=== PATIENT | female | born 1965 | race Caucasian/White ===

== ENCOUNTER 2022-08-28 08:25 | Outpatient (CLI) | payer OTHER, SELFPAY ==
[2022-08-28 09:52] LABS: Anion Gap 5 mmol/L (8-16); Blood Urea Nitrogen 18 mg/dL (7-17); Calcium 9.5 mg/dL (8.4-10.2); Carbon Dioxide 34 mmol/L (22-30); Chloride 100 mmol/L (98-107); Estimated Glomerular Filt Rate > 60; Glucose 119 mg/dL (65-110); Potassium 4.1 mmol/L (3.4-5.0); Sodium 139 mmol/L (137-145)
[2022-08-28 09:58] LABS: INR 0.9; Prothrombin Time 12.7 Seconds (11.1-14.7)
[2022-08-28 09:59] LABS: Partial Thromboplastin Time 29.3 SECONDS (22.3-36.8)
== END 2022-08-28 08:26 | disposition home or self-care (01) ==
PROVIDERS: Anesthesiology; PCP Internal Medicine; Visit Provider Urology
DX: Z01.812 Encounter for preprocedural laboratory examination (principal); N20.0 Calculus of kidney; E11.9 Type 2 diabetes mellitus without complications
CPT/HCPCS: 36415; 80048; 85610; 85730; 87086; 87088; 87147

== ENCOUNTER 2022-09-05 02:26 | Day surgery (SDC) | payer OTHER, SELFPAY ==
[2022-08-26 15:29] VITALS: BMI 37.7
--- NOTE | 2022-08-26 15:34 | PC.NURSE ---
Report to the Outpatient Waiting Room, entrance under the green pavilion located off [facility], at time 8:30 on date 09/05/22. Planned Procedure Time: 10:30. Time changes happen often and if your time is changed the preop area will call you the afternoon before. - You and your visitor will be asked to self-screen and do not enter if you have any COVID symptoms. - A mask is optional within the hospital at this time. Patients may have clear liquids (water, carbonated beverages, clear teas, apple juice) until 3 hours prior to surgery with a maximum of 20 ounces. - No food from midnight until time of surgery Take the following medications with a SIP of water the morning of surgery: CARVEDILOL DO NOT STOP ANY OF YOUR OTHER PRESCRIPTION MEDICATIONS PRIOR TO SURGERY EXCEPT THE FOLLOWING Medications to discontinue per physician: VITAMINS/SUPPLEMENTS Date to take last dose: 09/01/[address] LEE REGARDING ASPIRIN Please no make-up, nail tamazight, hairspray, perfume, deodorant, or body powder the day of surgery. No jewelry (including any body piercings) or valuables the day of surgery, leave them at home. Please take a shower or bath the night before, or the morning of, surgery with an antibacterial soap. Wear comfortable, loose fitting clothing. - Jewelry must be removed prior to entering the operating room. Rings and piercings that are not removed may be cut off. - The hospital will not accept responsibility for valuables. - Please leave all valuables, including medications, at home the day of surgery. If you are going home after surgery, a licensed driver license examiner must drive you home. - NO public transportation without another adult if you receive anesthesia. - We recommend that an adult stay with you for 24 hours following discharge. - We also recommend that you do not drive, make important decision, drink alcoholic beverages, or take any drugs that were not prescribed by your health care provider for at least 24 hours after your discharge time. Follow any additional instructions given to you from your surgeon. If you or anyone in your household have experienced Covid symptoms in the past week, please notify your surgeon or the nurse liaison at the phone number below for possible testing. Telephone instructions given to PT - TYRONE GARCÍA and asked if any additional questions and then verbalized understanding. Patient advised to call surgeon office or pre surgery nurse liaison [phone] if any additional questions.
--- NOTE | 2022-08-28 07:31 | P.HP_ITS ---
History of Present Illness History of Present Illness Consent: Risks, benefits, and alternatives have been discussed and questions answered. Patient agrees to proceed with procedure. Chief complaint: left renal stones 17mm Narrative: Yamilka Gardienr is a 57 year old female who has had several ureteral stones passed spontaneously in the past. She is now having persistent right flank pain and imaging an outside facility shows a 6 mm obstructing right mid ureteral stone at L4-L5. After discussion of options she has elected to proceed with right ESWL. She is aware the risk including, but not limited to, adverse cardiopulmonary events, perinephric hematoma, hematuria, need for additional procedures, Review of Systems Review of Systems: All systems reviewed & are unremarkable except as noted in HPI and below PMFSH Social History Social History Smoking status: Never smoker Alcohol intake: current Alcohol use details: 2/YEAR Substance use: never Substance use type: does not use Living arrangements: with family Spiritual care concerns: No Meds Home Medications and Allergies Home Medications Medication Instructions Recorded Confirmed Type aspirin 81 mg chewable tablet 81 mg PO HS 08/26/22 08/26/22 History carvedilol 25 mg tablet 25 mg PO BID 08/26/22 08/26/22 History ergocalciferol (vitamin D2) 1,250 1,250 mcg PO MONTHLY 08/26/22 08/26/22 History mcg (50,000 unit) capsule (Vitamin D2) fenofibrate micronized 134 mg 134 mg PO HS 08/26/22 08/26/22 History capsule losartan 100 1 tablet PO DAILY 08/26/22 08/26/22 History mg-hydrochlorothiazide 25 mg tablet metformin 500 mg tablet 1,000 mg PO BID 08/26/22 08/26/22 History multivitamin 1 tablet PO DAILY 08/26/22 08/26/22 History simvastatin 40 mg tablet 40 mg PO HS 08/26/22 08/26/22 History tamsulosin 0.4 mg capsule (Flomax) 0.4 mg PO HS 08/26/22 08/26/22 History vitamin B complex (B 1 tablet PO DAILY 08/26/22 08/26/22 History Complex-Vitamin B12 tablet) Allergies Allergy/AdvReac Type Severity Reaction Status Date / Time Penicillins Allergy Hives Verified 08/26/22 15:25 Exam Const: General: no acute distress Resp: Effort & Inspection: normal respiratory effort GI: Inspection: non-distended GI Palp: No abdominal tenderness and No Guarding due to palpation present (GI) Auscultation: normal bowel sounds Assessment and Plan Assessment and plan (1) Right ureteral stone: Code(s): N20.1 - Calculus of ureter Status: Acute Assessment and Plan: * Right ESWL
--- NOTE | 2022-09-04 14:18 | P.PNAN_ITS ---
Anes - Initial Pre Proc Eval Procedure: Operation Date: 09/05/22 10:30 Proposed Procedures p Left Extracorporeal Shock Wave Lithotripsy - Jermain Veliz MD Date/Time: 09/04/22 14:18 Surgeon: Jermain Veliz MD Pre Op Diagnosis: left renal stones 17mm Patient Data Age: 57 Gender: F Height: 1.52 m Weight: 87.55 kg Allergies Allergy/AdvReac Type Severity Reaction Status Date / Time Penicillins Allergy Hives Verified 08/26/22 15:25 Home Medications Medication Instructions Recorded Confirmed Type aspirin 81 mg chewable tablet 81 mg PO HS 08/26/22 08/26/22 History carvedilol 25 mg tablet 25 mg PO BID 08/26/22 08/26/22 History ergocalciferol (vitamin D2) 1,250 1,250 mcg PO MONTHLY 08/26/22 08/26/22 History mcg (50,000 unit) capsule (Vitamin D2) fenofibrate micronized 134 mg 134 mg PO HS 08/26/22 08/26/22 History capsule losartan 100 1 tablet PO DAILY 08/26/22 08/26/22 History mg-hydrochlorothiazide 25 mg tablet metformin 500 mg tablet 1,000 mg PO BID 08/26/22 08/26/22 History multivitamin 1 tablet PO DAILY 08/26/22 08/26/22 History simvastatin 40 mg tablet 40 mg PO HS 08/26/22 08/26/22 History tamsulosin 0.4 mg capsule (Flomax) 0.4 mg PO HS 08/26/22 08/26/22 History vitamin B complex (B 1 tablet PO DAILY 08/26/22 08/26/22 History Complex-Vitamin B12 tablet) Patient hx anesthesia problems: none Family hx anesthesia problems: none Results Review: All pre-operative results and documents have been reviewed as part of the pre- operative evaluation. [facility] Past Medical History Medical History (Updated 09/04/22 @ 14:19 by Gerson Carranza MD) Diabetes HTN (hypertension) Hyperlipidemia Obesity Right ureteral stone Social History Social History Smoking status: Never smoker Alcohol intake: current Alcohol use details: 2/YEAR Substance use: never Substance use type: does not use Living arrangements: with family Spiritual care concerns: No Anes - Eval Final PreProcedure Day of Procedure 09/04/22 14:18 Patient weight: obese Heart: regular rate and rhythm Lungs: clear to auscultation and normal air movement Airway: Mallampati scale class II Neurological: alert and oriented Last oral intake: >/= 8 hours ASA classification: III Emergent: no Anesthetic plan: proceed Anesthesia type and monitoring: general LMA Results Review: All pre-operative results and documents have been reviewed as part of the pre- operative evaluation. Informed Consent: The patient's anesthetic plan and its attendant risks and benefits were discussed with the patient/family/POA. Questions were solicited and answers provided to the satisfaction of the patient/family/POA.
[2022-09-05] VITALS (8 sets, daily range): BP systolic 97–139; BP diastolic 53–62; PULSE 70–78; RESP 12–20; TEMP 36.5; O2SAT 91–99
--- NOTE | ~2022-09-05 | XR_ITS ---
EXAMINATION: XR abdomen/kub 1V DATE: 09/05/2022 08:50 INDICATION: Kidney stones. TECHNIQUE: A supine view of the abdomen on 2 radiographs was obtained. COMPARISON: None. FINDINGS: There are no dilated loops of bowel. There are 3 stones in left kidney measuring up to 12 m m. There are multiple calcifications in the pelvis. IMPRESSION: 1. Left kidney stones. 2. Multiple calcifications in the pelvis, which may be phleboliths. Distal ureteral stone cannot be e xcluded on either side. Reviewed, dictated and finalized at location A. IMPRESSION: 1. Left kidney stones. 2. Multiple calcifications in the pelvis, which may be phleboliths. Distal uret eral stone cannot be excluded on either side.
--- NOTE | 2022-09-05 06:50 | WPDHPUPDATE1 ---
History and Physical Update Update Date/Time: 09/05/22 06:50 History and Physical has been reviewed, including an updated exam of the patient. There are NO changes in the patient's condition. Risks, benefits, and alternatives have been discussed and questions answered. Patient agrees to proceed with procedure.
[2022-09-05] MEDS: LACTATED RINGERS 1,000 ML 30 ML IV CONT ×2 (09:30→12:24)
[2022-09-05 09:39] LABS: Glucose Point of Care 125 mg/dl (65-105)
--- NOTE | 2022-09-05 09:41 | SUR.PREOP ---
0930-PT AND AWARE SURGEON DELAYS SELF R/T EMERGENCY.
[2022-09-05] MEDS: ceFAZolin 2 GM/D5W 50 ML 2 GM/50 ML BAG IVPB (11:21)
--- NOTE | 2022-09-05 11:53 | W.PM.PROC2 ---
Procedure Note - Detailed Date of Procedure 09/05/22 Pre-op Diagnosis Left renal stones Post-op Diagnosis Same Procedure Performed Left ESWL Surgeon Jermain Veliz MD Anesthesia General Description of Procedure The patient was brought to the operative suite where she was placed in the supine position on the Dornier lithotripsy table. The focal point of the lithotripter was placed at at 2 contiguous stones in her left lower pole calyx. A total of 2500 shocks were delivered at a power setting of 4. There appeared to be good fragmentation of the stone. The patient tolerated the procedure well and was taken to the recovery room in good condition. Drains No Packing No Pathology None sent Complications No immediate complications Condition Stable
[2022-09-05 12:19] LABS: Glucose Point of Care 145 mg/dl (65-105)
== END 2022-09-05 14:00 | disposition home or self-care (01) ==
PROVIDERS: PCP Internal Medicine; Visit Provider Urology
PROC: (CPT 50590; principal; 2022-09-05 10:30)
DX: N20.0 Calculus of kidney (principal); E11.9 Type 2 diabetes mellitus without complications; I10 Essential (primary) hypertension; E78.5 Hyperlipidemia, unspecified; E66.9 Obesity, unspecified; Z68.37 Body mass index [BMI] 37.0-37.9, adult; Z79.82 Long term (current) use of aspirin; Z79.84 Long term (current) use of oral hypoglycemic drugs
CPT/HCPCS: 50590; 36415; 74018; 80048; 82948; 85610; 85730; 87086; 87088; 87147; J0690; J1100; J2250; J2405; J2704; J3010; J7120

== ENCOUNTER 2022-09-19 13:34 | Outpatient (CLI) | payer OTHER, SELFPAY ==
--- NOTE | ~2022-09-19 | XR_ITS ---
EXAMINATION: XR abdomen/kub 1V DATE: 09/19/2022 13:55 INDICATION: Calculus of kidney. TECHNIQUE: A supine view of the abdomen on 2 radiographs was obtained. COMPARISON: Abdomen radiographs 09/05/2022 FINDINGS: There are no dilated loops of bowel. There is a cluster of at least 3 stones in left kidney measuring up to 5 mm. There are phleboliths in the pelvis. There are 7 x 3 mm and 7 x 4 mm stones in distal left ureter. IMPRESSION: 1. Stones in the left kidney and distal left ureter. Reviewed, dictated and finalized at location A.
== END 2022-09-19 13:35 | disposition home or self-care (01) ==
PROVIDERS: PCP Internal Medicine; Visit Provider Urology
DX: N20.2 Calculus of kidney with calculus of ureter (principal)
CPT/HCPCS: 74018

== ENCOUNTER 2022-09-30 12:03 | Outpatient (CLI) | payer OTHER, SELFPAY ==
--- NOTE | ~2022-09-30 | XR_ITS ---
EXAMINATION: XR abdomen/kub 1V DATE: 09/30/2022 12:28 INDICATION: Left renal stone. TECHNIQUE: A supine view of the abdomen on 2 radiographs was obtained. COMPARISON: Abdomen radiographs 09/19/2022, 09/05/2022 FINDINGS: There are no dilated loops of bowel. The kidneys are obscured by bowel. There are at least 7 stones in left kidney measuring up to 2 mm. There are multiple phleboliths in the pelvis. There are clusters of stones in distal left ureter. IMPRESSION: 1. Stones in the left kidney and distal left ureter. Reviewed, dictated and finalized at location L.
== END 2022-09-30 12:04 | disposition home or self-care (01) ==
PROVIDERS: PCP Internal Medicine; Visit Provider Urology
DX: N20.2 Calculus of kidney with calculus of ureter (principal)
CPT/HCPCS: 74018

== ENCOUNTER 2022-10-18 07:06 | Outpatient (CLI) | payer OTHER, SELFPAY ==
--- NOTE | ~2022-10-18 | XR_ITS ---
XR abdomen/kub 1V 10/18/2022 07:22 Indication: Left renal stone. Recent lithotripsy. Procedure: KUB Comparison: 09/30/2022 Findings: There are stones in the lower pole of the left kidney. There are pelvic phleboliths. No acu te osseous abnormality. Bowel gas pattern is nonobstructive. Impression: 1: Left nephrolithiasis. Reviewed, dictated and finalized at location A. Impression: 1: Left nephrolithiasis.
== END 2022-10-18 07:07 | disposition home or self-care (01) ==
LOC: ANHIMG 07:11
PROVIDERS: PCP Internal Medicine; Visit Provider Urology
DX: N20.0 Calculus of kidney (principal)
CPT/HCPCS: 74018